=== PATIENT | male | born 1960 | race Caucasian/White ===

== ENCOUNTER 2020-05-25 16:17 | Emergency (ER) | payer MEDICAID ==
[2020-05-25] MEDS ORDERED: Bisacodyl 10 MG Supp RECTAL ONE (16:55)
[2020-05-25] MEDS ORDERED: Glycerin Adult 2 GM Supp RECTAL ONE (16:56)
--- NOTE | 2020-05-25 17:00 | EDM.PDOC ---
ED HPI GENERAL MEDICAL PROBLEM - General Chief Complaint: Abdominal Pain Stated Complaint: CONSTIPATION Time Seen by Provider: 05/25/20 16:45 Source of Information: Reports: Patient, Old Records, RN History Limitations: Reports: No Limitations - History of Present Illness INITIAL COMMENTS - FREE TEXT/NARRATIVE: 59 yo male here with constipation. Says it feels like he has stool down in his rectum, but he cannot push it out. No nausea, vomiting, or abdominal pain. Has had constipation in the past, but has never had to be seen for it. He tried oral laxatives without benefit. Is visiting friends for the weekend locally. Onset: Today Onset Date: 05/25/20 Duration: Hour(s):, Constant Location: Reports: Pelvis (rectal pressure) Quality: Reports: Pressure (rectal) Severity: Moderate Improves with: Reports: None Worsens with: Reports: None Context: Reports: Other (See HPI) Associated Symptoms: Reports: No Other Symptoms Treatments CLINICAL CYTOGENETICS DIRECTOR: Reports: Other (see below) (oral laxative) - Related Data Allergies Allergy/AdvReac Type Severity Reaction Status Date / Time Penicillins Allergy Anaphylactic Verified 05/25/20 16:33 Shock sulfamethoxazole Allergy Anaphylactic Verified 05/25/20 16:33 [From Bactrim] Shock trimethoprim [From Bactrim] Allergy Anaphylactic Verified 05/25/20 16:33 Shock Home Meds: Home Meds Aspirin 1 tab PO DAILY 05/25/20 [History] Clopidogrel [Plavix] 1 tab PO DAILY 05/25/20 [History] Isosorbide Mononitrate [Imdur] 1 tab PO DAILY 05/25/20 [History] Metoprolol Succinate 1 tab PO DAILY 05/25/20 [History] Omeprazole 1 tab PO DAILY 05/25/20 [History] Ranolazine [Ranexa] 1 tab PO BID 05/25/20 [History] atorvaSTATin [Lipitor] 1 tab PO DAILY 05/25/20 [History] Past Medical History Cardiovascular History: Reports: High Cholesterol, Hypertension, Stents - Past Surgical History GI Surgical History: Reports: Hernia, Abdominal, Hernia, Inguinal Social & Family History - Tobacco Use Tobacco Use Status *Q: Never Tobacco User ED ROS GENERAL - Review of Systems Review Of Systems: See Below Constitutional: Reports: No Symptoms GI/Abdominal: Reports: Constipation. Denies: Diarrhea : Reports: No Symptoms Musculoskeletal: Reports: No Symptoms Skin: Reports: No Symptoms ED EXAM, GI/ABD - Physical Exam Exam: See Below Exam Limited By: No Limitations General Appearance: Alert, WD/WN, No Apparent Distress Eyes: Bilateral: Normal Appearance Nose: Normal Inspection, No Blood Throat/Mouth: Normal Lips, Normal Voice, No Airway Compromise Head: Atraumatic, Normocephalic Respiratory/Chest: No Respiratory Distress GI/Abdominal Exam: Normal Bowel Sounds, Soft, Non-Tender, No Distention Neurological: Alert, Oriented, CN II-XII Intact, Normal Cognition, No Motor/Sensory Deficits Psychiatric: Normal Affect, Normal Mood Skin Exam: Warm, Dry, Intact, Normal Color, No Rash Course - Vital Signs Last Recorded V/S: Last Vital Signs Temp 36.3 C 05/25/20 16:47 Pulse 72 05/25/20 16:47 Resp 16 05/25/20 16:47 BP 127/73 05/25/20 16:47 Pulse Ox 97 05/25/20 16:47 - Orders/Labs/Meds Orders: Active Orders 24 hr Category Date Time Status Enema [RC] ASDIRECTED Care 05/25/20 17:42 Active Meds: Medications Discontinued Medications Generic Name Dose Route Start Last Admin Trade Name Freq PRN Reason Stop Dose Admin Bisacodyl 10 mg 05/25/20 16:55 05/25/20 17:02 Bisacodyl 10 Mg Supp RECTAL 05/25/20 16:56 10 mg ONETIME ONE Administration Glycerin 1 supp 05/25/20 16:56 05/25/20 17:02 Glycerin Adult 2.1 Gm Supp RECTAL 05/25/20 16:57 1 supp ONETIME ONE Administration - Re-Assessments/Exams Free Text/Narrative Re-Assessment/Exam: 05/25/20 17:41 Minimal results with suppositories. Free Text/Narrative Re-Assessment/Exam: 05/25/20 18:08 Good results with enema Departure - Departure Time of Disposition: 18:09 Disposition: Home, Self-Care 01 Condition: Good Clinical Impression: Constipation Qualifiers: Constipation type: slow transit constipation Qualified Code(s): K59.01 - Slow transit constipation - Discharge Information *PRESCRIPTION DRUG MONITORING PROGRAM REVIEWED*: No *COPY OF PRESCRIPTION DRUG MONITORING REPORT IN PATIENT MELANI: No Instructions: Constipation, Adult, [id number] Referrals: PCP,None [Primary Care Provider] - Forms: ED Department Discharge Additional Instructions: Take Miralax one dose every 12-24 hrs with ample fluids. Recheck with your doctor. Sepsis Event Note (ED) - Evaluation Sepsis Screening Result: No Definite Risk - Focused Exam Vital Signs: Vital Signs Temp Pulse Resp BP Pulse Ox 05/25/20 16:47 36.3 C 72 16 127/73 97 05/25/20 16:29 36.3 C 72 16 127/73 97 - My Orders Last 24 Hours: My Active Orders 05/25/20 17:42 Enema [RC] ASDIRECTED - Assessment/Plan Last 24 Hours: My Active Orders 05/25/20 17:42 Enema [RC] ASDIRECTED
== END 2020-05-25 18:20 | disposition home or self-care (01) ==
LOC: JP.ED 16:17
DX: K59.01 Slow transit constipation (principal); E78.00 Pure hypercholesterolemia, unspecified; I10 Essential (primary) hypertension; Z95.5 Presence of coronary angioplasty implant and graft; Z88.0 Allergy status to penicillin; Z88.2 Allergy status to sulfonamides; Z88.1 Allergy status to other antibiotic agents; Z79.82 Long term (current) use of aspirin; Z79.02 Long term (current) use of antithrombotics/antiplatelets; Z79.899 Other long term (current) drug therapy
CPT/HCPCS: 99283; A9270

== ENCOUNTER 2020-09-22 21:04 | Emergency (ER) | payer MEDICAID ==
--- NOTE | 2020-09-22 21:27 | EDM.PDOC ---
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 Jude has required EPI and emergency management over 4 times in the past. Jude was in his garden this evening when he felt something sting/bite his right anterior chin with rapid increased in swelling into chin and throat. Jude took 3 benadryl sooner after onset of symptoms. Patient was driven to the ER by friend but EPI shot was not given. EPI was note given before present ing to ER due to symptom improvement. - Related Data Allergies Allergy/AdvReac Type Severity Reaction Status Date / Time bee venom protein (honey bee) Allergy Anaphylactic Verified 09/22/20 21:18 Shock Penicillins Allergy Anaphylactic Verified 05/25/20 16:33 Shock sulfamethoxazole Allergy Anaphylactic Verified 05/25/20 16:33 [From Bactrim] Shock trimethoprim [From Bactrim] Allergy Anaphylactic Verified 05/25/20 16:33 Shock Home Meds: Home Meds Aspirin 1 tab PO DAILY 05/25/20 [History] Clopidogrel [Plavix] 1 tab PO DAILY 05/25/20 [History] Isosorbide Mononitrate [Imdur] 1 tab PO DAILY 05/25/20 [History] Metoprolol Succinate 1 tab PO DAILY 05/25/20 [History] Omeprazole 1 tab PO DAILY 05/25/20 [History] Ranolazine [Ranexa] 1 tab PO BID 05/25/20 [History] atorvaSTATin [Lipitor] 1 tab PO DAILY 05/25/20 [History] EPINEPHrine [Epipen 2-Diaz] 0.3 mg IJ DAILY PRN 30 Days #2 ml 09/22/20 [Rx] Past Medical History HEENT History: Reports: Allergic Rhinitis, Impaired Vision Cardiovascular History: Reports: CAD, High Cholesterol, Hypertension, Stents Respiratory History: Reports: COPD, Other (See Below) Other Respiratory History: emphysemia Gastrointestinal History: Reports: GERD Hematologic History: Reports: Anticoagulation Therapy Oncologic (Cancer) History: Reports: Basal Cell Carcinoma - Infectious Disease History Infectious Disease History: Reports: Chicken Pox, Measles - Past Surgical History Cardiovascular Surgical History: Reports: Coronary Artery Stent GI Surgical History: Reports: Hernia, Abdominal, Hernia, Inguinal Dermatological Surgical History: Reports: Skin Biopsy Social & Family History - Tobacco Use Tobacco Use Status *Q: Never Tobacco User - Recreational Drug Use Recreational Drug Use: No ED ROS ALLERGIC REACTION - Review of Systems Review Of Systems: Comprehensive ROS is negative, except as noted in HPI. ED EXAM GENERAL NO PERIP PULSE - Physical Exam Exam: See Below Exam Limited By: No Limitations General Appearance: Alert, WD/WN, Mild Distress (concern regarding sting/bite on chin) Eye Exam: Bilateral Eye: Normal Inspection Ears: Normal External Exam, Other (cerumen noted) Nose: Normal Inspection Throat/Mouth: Other (slight fullness noted of post pharynx and soft palette ) Head: Other (palpable swelling right anterior chin with slight induration. No induration submental area or anterior nec. ) Neck: Normal Inspection, Supple Respiratory/Chest: No Respiratory Distress, Lungs Clear, Normal Breath Sounds, No Accessory Muscle Use Cardiovascular: Normal Peripheral Pulses, Regular Rate, Rhythm GI/Abdominal: Normal Bowel Sounds, Non-Tender Extremities: Normal Inspection, Normal Range of Motion Neurological: Alert, Oriented, CN II-XII Intact, Normal Cognition, Normal Gait Psychiatric: Normal Affect, Normal Mood #1 Interpretation EKG Date: 09/22/20 Time: 21:47 Rhythm: NSR Rate (Beats/Min): 56 [place]: Normal P-Wave: Present QRS: Normal ST-T: Normal QT: Normal Comparison: NA - No Prior EKG Course - Vital Signs Last Recorded V/S: Last Vital Signs Temp 36.3 C 09/22/20 21:22 Pulse 58 L 09/22/20 21:45 Resp 15 09/22/20 21:45 BP 135/86 09/22/20 21:45 Pulse Ox 99 09/22/20 21:45 - Orders/Labs/Meds Orders: Active Orders 24 hr Category Date Time Status Cardiac Monitoring [RC] .As Directed Care 09/22/20 21:43 Active EKG Documentation Completion [RC] ASDIRECTED Care 09/22/20 21:44 Active Peripheral IV Care [RC] . DIRECTED Care 09/22/20 21:44 Active Sodium Chloride 0.9% [Saline Flush] Med 09/22/20 21:43 Active 10 ml FLUSH ASDIRECTED PRN Peripheral IV Insertion Adult [OM.PC] Urgent Oth 09/22/20 21:43 Ordered EKG 12 Lead [EK] Urgent Ther 09/22/20 21:43 Ordered Medication Orders Sodium Chloride (Sodium Chloride 0.9% 10 Ml Syringe) 10 ml FLUSH ASDIRECTED PRN PRN Reason: Keep Vein Open Last Admin: 09/22/20 22:03 Dose: 10 ml Documented by: [email or web address] Meds: Medications Generic Name Dose Route Start Last Admin Trade Name Tu PRN Reason Stop Dose Admin Sodium Chloride 10 ml 09/22/20 21:43 09/22/20 22:03 Sodium Chloride 0.9% 10 Ml Syringe FLUSH 10 ml ASDIRECTED PRN Administration Keep Vein Open Discontinued Medications Generic Name Dose Route Start Last Admin Trade Name Tu PRN Reason Stop Dose Admin Dexamethasone 10 mg 09/22/20 21:39 09/22/20 22:08 Dexamethasone 4 Mg/Ml Sdv PO 09/22/20 21:40 Not Given ONETIME ONE Diphenhydramine HCl 25 mg 09/22/20 21:51 09/22/20 21:59 Diphenhydramine 50 Mg/Ml Sdv IVPUSH 09/22/20 21:52 25 mg ONETIME ONE Administration Famotidine 40 mg 09/22/20 21:40 09/22/20 22:08 Famotidine 20 Mg Tab PO 09/22/20 21:41 Not Given ONETIME ONE Famotidine 20 mg 09/22/20 21:50 09/22/20 21:59 Famotidine 20 Mg/2 Ml Sdv IVPUSH 09/22/20 21:51 20 mg ONETIME ONE Administration Methylprednisolone Sodium Succinate 125 mg 09/22/20 21:44 09/22/20 21:59 Methylprednisolone Sodium Succinate 125 Mg/2 Ml Sdv IVPUSH 09/22/20 21:45 125 mg ONETIME ONE Administration - Re-Assessments/Exams Free Text/Narrative Re-Assessment/Exam: Ice water given and patient will be monitored in the department for 1-2 hours to ensure continued symptom improvement. 09/22/20 21:30 Jude is on phone drinking ice water when 10 minutes after initial assessment, Jude was concerned about return of fullness anterior and lower chin. IV access, EKG, quality assurance monitor body, solu medrol 125 IV, Pepcid 20mg IV and Benadryl 25mg IV. 09/22/20 21:51 Symptoms have continued to improve after additional interventions. patient has been monitor for over 2 hrs after initial reaction. Patient is comfortable discharging home in the next hours. Recommended continuing Benadryl and pepcid 20mg daily for the next 24-48 hours. 09/22/20 22:35 Departure - Departure Time of Disposition: 23:00 Disposition: Home, Self-Care 01 Clinical Impression: Bee sting allergy - Discharge Information Prescriptions: EPINEPHrine [Epipen 2-Diaz] 0.3 mg IJ DAILY PRN 30 Days #2 ml PRN Reason: Allergies Instructions: Allergies, Adult, Anaphylactic Reaction, Adult Referrals: PCP,None [Primary Care Provider] - Forms: ED Department Discharge Additional Instructions: 1. Benadryl 25-50mg every 6 hrs for the next 24-48 hrs for residual swelling due to allergic reaction to bite (bee sting). 2. Pepcid 20 mg every am and pm for the next 24-48 hrs for residual swelling due to allergic reaction to bite (bee sting). 3. New prescription for EPI pen written and instructions for use. 4. Return to ER if worsening symptoms or new concerns. Sepsis Event Note (ED) - Evaluation Sepsis Screening Result: No Definite Risk - Focused Exam Vital Signs: Vital Signs Temp Pulse Resp BP Pulse Ox 09/22/20 21:45 58 L 15 135/86 99 09/22/20 21:22 36.3 C 57 L 16 169/86 H 98 09/22/20 21:16 36.3 C 57 L 16 169/86 H 98 - My Orders Last 24 Hours: My Active Orders 09/22/20 21:43 Cardiac Monitoring [RC] .As Directed Sodium Chloride 0.9% [Saline Flush] 10 ml FLUSH ASDIRECTED PRN Peripheral IV Insertion Adult [OM.PC] Urgent EKG 12 Lead [EK] Urgent 09/22/20 21:44 EKG Documentation Completion [RC] ASDIRECTED Peripheral IV Care [RC] . DIRECTED - Assessment/Plan Last 24 Hours: My Active Orders 09/22/20 21:43 Cardiac Monitoring [RC] .As Directed Sodium Chloride 0.9% [Saline Flush] 10 ml FLUSH ASDIRECTED PRN Peripheral IV Insertion Adult [OM.PC] Urgent EKG 12 Lead [EK] Urgent 09/22/20 21:44 EKG Documentation Completion [RC] ASDIRECTED Peripheral IV Care [RC] . DIRECTED
[2020-09-22] MEDS ORDERED: Dexamethasone 4 MG/ML SDV PO ONE (21:39)
[2020-09-22] MEDS ORDERED: Famotidine 20 MG Tab PO ONE (21:40)
[2020-09-22] MEDS ORDERED: Sodium Chloride 0.9% 10 ML Syringe FLUSH PRN (21:43)
[2020-09-22] MEDS ORDERED: methylPREDNISolone Sodium Succinate 125 MG/2 ML SDV IVPUSH ONE (21:44)
[2020-09-22] MEDS ORDERED: Famotidine 20 MG/2 ML SDV IVPUSH ONE (21:50)
[2020-09-22] MEDS ORDERED: diphenhydrAMINE 50 MG/ML SDV IVPUSH ONE (21:51)
== END 2020-09-22 23:03 | disposition home or self-care (01) ==
LOC: JP.ED 21:04
DX: T63.441A Toxic effect of venom of bees, accidental (unintentional), initial encounter (principal); I25.10 Atherosclerotic heart disease of native coronary artery without angina pectoris; E78.00 Pure hypercholesterolemia, unspecified; I10 Essential (primary) hypertension; J43.9 Emphysema, unspecified; K21.9 Gastro-esophageal reflux disease without esophagitis; Z79.01 Long term (current) use of anticoagulants; Z79.82 Long term (current) use of aspirin; Z79.02 Long term (current) use of antithrombotics/antiplatelets; Z79.899 Other long term (current) drug therapy; Z91.030 Bee allergy status; Z88.0 Allergy status to penicillin; Z88.2 Allergy status to sulfonamides
CPT/HCPCS: 93005; 96374; 96375; 99283; J1200; J2930; J3490